=== PATIENT | male | born 1950 | race American Indian/Alaskan Native ===

== ENCOUNTER 2020-12-30 06:20 | Day surgery (SDC) | payer OTHER ==
[2020-12-25 16:07] LABS: Hematocrit 45.6 % (35.5-45.6); Hemoglobin 15.2 gm/dl (11.8-15.2); Mean Corpuscular HGB Conc 33 % (32-34); Mean Corpuscular Volume 98 fl (84-94); Platelet Count 119 K/mm3 (140-440); Red Blood Count 4.65 M/mm3 (3.65-5.03); Red Cell Distribution Width 13.3 % (13.2-15.2)
[2020-12-25 16:22] LABS: Alanine Aminotransferase 14 units/L (7-56); Albumin 4.1 g/dL (3.9-5); BUN/Creatinine Ratio 13; Blood Urea Nitrogen 16 mg/dL (9-20); Calcium 8.8 mg/dL (8.4-10.2); Hemolysis Index 16
[~2020-12-30 06:20] MED LIST: LACTATED RINGERS 1,000 ML IV SCH
[2020-12-30] MEDS ORDERED: BACTERIOSTATIC SODIUM CHLORIDE 0.9% 30 ML VIAL INFILTRATI ONE (06:41)
[2020-12-30] MEDS ORDERED: MIDAZOLAM 2 MG/2 ML INJ ONE (07:20)
[2020-12-30] MEDS ORDERED: MIDAZOLAM 2 MG/2 ML INJ IV NR (07:20)
[2020-12-30] MEDS ORDERED: fentaNYL 100 MCG/2 ML INJ IV PRN (07:24)
[2020-12-30] MEDS ORDERED: ONDANSETRON 4 MG/2 ML INJ IV PRN (07:24)
--- NOTE | 2020-12-30 07:24 | Anesthesia Consultation ---
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 Reviewed most recent cardiology records.
--- NOTE | 2020-12-30 07:24 | Anesthesia Day of Surgery ---
Anesthesia Day of Surgery - Day of Surgery Patient Examined: Yes Patient H&P Reviewed: Yes Patient is NPO: Yes
[2020-12-30] MEDS ORDERED: ePHEDrine SULFATE 50 MG/1 ML INJ ONE (07:31)
[2020-12-30] MEDS ORDERED: ONDANSETRON 4 MG/2 ML INJ ONE (07:34)
[2020-12-30] MEDS ORDERED: propofoL 200 MG/20 ML VIAL IV ONE (07:34)
[2020-12-30] MEDS ORDERED: fentaNYL 100 MCG/2 ML INJ ONE (07:34)
[2020-12-30] MEDS ORDERED: dexAMETHasone 20 MG/5 ML VIAL ONE (07:34)
[2020-12-30] MEDS ORDERED: PHENYLEPHRINE/NS 1,000 MCG/10 ML SYRINGE (OR USE) IV ONE (07:34)
[2020-12-30] MEDS ORDERED: LIDOCAINE MPF (2%) 20 MG/1 ML VIAL 5 ML ONE (07:34)
[2020-12-30] MEDS ORDERED: GLYCOPYRROLATE 0.4 MG/2 ML INJ ONE (07:34)
[2020-12-30] MEDS ORDERED: WATER FOR IRRIG STERILE 1,500 ML BOTTLE IR ONE ×2 (07:44→08:41)
[2020-12-30] MEDS ORDERED: WATER FOR IRRIG STERILE 2000 ML IR ONE ×2 (07:45→08:41)
[2020-12-30] MEDS ORDERED: SUCCINYLCHOLINE CHLORIDE 200 MG/10 ML INJ MDV ONE (07:48)
[2020-12-30] MEDS ORDERED: ceFAZolin/STERILE WATER 2 GM/20 ML SYRINGE IV NR (08:03)
[2020-12-30] MEDS ORDERED: GENTAMICIN 160 MG in SODIUM CHLORIDE 0.9% 100 ML IV STA (08:10)
[2020-12-30] MEDS ORDERED: IOHEXOL 300 MG/ML 50ML IV ONE (08:41)
--- NOTE | 2020-12-30 09:10 | Ultrasound Report ---
ULTRASOUND TRANSRECTAL HISTORY: Gross hematuria, guidance for prostate biopsy TECHNIQUE: Transrectal grayscale ultrasound. FINDINGS: Transrectal ultrasound guidance was provided by radiology during prostate biopsy by urology . Approximately 4 sonographic images are presented demonstrating needle placement. The prostate gland measures 10.0 x 6.0 x 4.9 cm with volume of 152.6 cc. Please correlate with the procedural report as needed. IMPRESSION: Successful prostate biopsy under ultrasound guidance. Signer Name: José Toledo Jr, MD Signed: 12/30/2020 9:05 AM Workstation Name: [id number]
--- NOTE | 2020-12-30 09:14 | Post Operative Note ---
Date of procedure: 12/30/20 Pre-op diagnosis: inc psa heme Post-op diagnosis: same Findings: huge gland Procedure: cysto bx pus bx Anesthesia: GETA Surgeon: CHEPE PHELPS Estimated blood loss: minimal Pathology: list (bladder prostate) Specimen disposition: to lab Condition: stable Disposition: PACU
--- NOTE | 2020-12-30 09:16 | Discharge Summary ---
Short Stay Discharge Plan Activity: other (no straining ) Weight Bearing Status: Full Weight Bearing Diet: low fat, low cholesterol, low salt Special Instructions: other (inc fluids ) Durable Medical Equipment Needed Upon Discharge: other (home with jordan x 48 hrs ) Follow up with: [facility] [Primary Care Provider] - 7 Days
--- NOTE | 2020-12-30 10:17 | Operative Report ---
PREOPERATIVE DIAGNOSES: Increasing PSA, abnormal cytology, hematuria, very large prostate. POSTOPERATIVE DIAGNOSES: Increasing PSA, abnormal cytology hematuria, very large prostate. PROCEDURE: Cystoscopy, random biopsy, prostate ultrasound and biopsy. SURGEON: Dr. Donaldo Hays ANESTHESIA: General. FINDINGS: This is a gentleman with a very large prostate, occasional terminal hematuria. CT scan was basically unremarkable except for large prostate. He now presents for treatment. DESCRIPTION OF PROCEDURE: The patient was brought to the operating table. Following induction of anesthesia, placed in lithotomy position, prepped and draped in usual sterile fashion. Cystourethroscopy showed a very large middle lobe. Prostate was well over 100 grams with a very large middle lobe. We could not see the orifices safely. Large vessels that we did not want to traumatize it, too much, so we did not do the retrograde. A biopsy though was done. Cytology was collected. A Moreno was left. At this point, prostate ultrasound was placed after we cleaned the area of rectum with Betadine. Multiple biopsies were done focusing on the areas of abnormality with the MDx and atypical acinar proliferation. The patient tolerated the procedure well, approximately 150 gram prostate, was brought to recovery room with an 18 coude in stable condition. JOB# [id number] NELY/CLIFTON
[2020-12-30 11:46] VITALS: BP 128/77
--- NOTE | 2020-12-30 12:07 | Post Anesthesia Evaluation ---
- Post Anesthesia Evaluation Patient Participated: Yes Airway Patent: Yes Stable Respiratory Function: Yes Nausea/Vomiting: No Temp > 96.8F: Yes Pain Manageable: Yes Adequeate Hydration: Yes Anesthesia Complications: No
--- NOTE | 2020-12-30 12:26 | XRay Report ---
INTRAOPERATIVE FLUOROSCOPY: ABDOMEN INDICATION / CLINICAL INFORMATION: HEMATURIA/ELEVATED PSA. TECHNIQUE: Intraoperative spot images were obtained during the procedure. FINDINGS: A single intraoperative fluoroscopic view of the abdomen was obtained for the purposes of surgical lo calization. Fluoroscopy Time: 3 seconds. Fluoroscopy Images: 1. Signer Name: Sudarshan Wadsworth MD Signed: 12/30/2020 12:22 PM Workstation Name: [id number]
== END 2020-12-30 11:35 | disposition home or self-care (01) ==
LOC: OR 06:20
PROVIDERS: ATTEND Urology
DX: R97.20 Elevated prostate specific antigen [PSA] (principal); N40.0 Benign prostatic hyperplasia without lower urinary tract symptoms; N30.81 Other cystitis with hematuria; Z20.822 Contact with and (suspected) exposure to COVID-19; I11.0 Hypertensive heart disease with heart failure; I50.9 Heart failure, unspecified; I25.10 Atherosclerotic heart disease of native coronary artery without angina pectoris; E78.00 Pure hypercholesterolemia, unspecified; E11.9 Type 2 diabetes mellitus without complications; Z90.49 Acquired absence of other specified parts of digestive tract; Z98.890 Other specified postprocedural states; Z79.899 Other long term (current) drug therapy; Z79.4 Long term (current) use of insulin; Z88.8 Allergy status to other drugs, medicaments and biological substances; Z95.0 Presence of cardiac pacemaker
CPT/HCPCS: 36415; 52204; 55700; 74018; 76872; 80053; 82962; 85027; 88112; 88305; A4217; C1758; J0330; J0690; J1100; J1580; J2250; J2370; J2405; J2704; J3010; J7120; Q9967; U0003